=== PATIENT | female | born 1960 | race Two or more races ===

== ENCOUNTER → 2021-04-12 | Emergency (ER) | payer OTHER | END | disposition left against medical advice (07) | LOC: ER 09:23 | DX: R10.9 Unspecified abdominal pain (principal); Z53.21 Procedure and treatment not carried out due to patient leaving prior to being seen by health care provider ==

== ENCOUNTER 2021-07-12 10:55 | Emergency (ER) | payer MEDICAID, OTHER ==
[~2021-07-12] VITALS: Ht 162.6 cm; Wt 68.0 kg
[2021-07-12] MEDS ORDERED: HYDROmorphone HCL 2 MG/ML VL/or syr IV ONE ×2 (11:30→15:00)
[2021-07-12] MEDS ORDERED: PANTOPRAZOLE 40 MG/10 ML VIAL INJ IV ONE (11:30)
[2021-07-12] MEDS ORDERED: ONDANSETRON HCL 4 MG/2 ML VIAL IV ONE ×2 (11:30→15:00)
[2021-07-12] MEDS ORDERED: SODIUM CHLORIDE 0.9% 1,000 ML IVB ONE (11:30)
[2021-07-12 12:31] LABS: Basophils # (auto) 0 10 ^3/uL (0-0.2); Basophils % (auto) 0.4 % (0.0-2.0); Eosinophils # (auto) 0 10 ^3/uL (0-0.8); Eosinophils % (auto) 0.7 % (0.0-7.0); Hematocrit 36.6 % (36.0-46.0); Hemoglobin 12.3 g/dL (12.2-16.2); Lymphocytes # (auto) 1.8 10 ^3/uL (0.4-5.4); Lymphocytes % (auto) 38.2 % (10.0-50.0); Mean Corpuscular Hemoglobin 32.6 pg (28.0-32.0); Mean Corpuscular Hgb Conc. 33.6 g/dL (32.0-36.0); Mean Corpuscular Volume 96.9 fL (80.0-100.0); Monocytes # (auto) 0.2 10 ^3/uL (0-1.3); Neutrophils # (auto) 2.6 10 ^3/uL (1.6-8.6); Neutrophils % (auto) 56.7 % (37.0-80.0); Nucleated Red Blood Cells % 0.1 %; Red Blood Cells 3.78 10^6/uL (4.0-5.20); White Blood Cell 4.6 10^3/uL (4.4-10.8)
[2021-07-12 12:42] LABS: Albumin 4.1 g/dL (3.4-5.0); Calcium 9.4 mg/dL (8.5-10.1); Potassium 3.2 mmol/L (3.5-5.1)
[2021-07-12 12:46] LABS: Bilirubin, Total 0.9 mg/dL (0.2-1.0); Total Protein 7.4 g/dL (6.4-8.2)
[2021-07-12 12:49] LABS: INR 0.94 (0.9-1.15); Partial Thromboplastin Time < 20.0 sec (23.6-33.0)
[2021-07-12 13:04] LABS: Amylase 938 U/L (25-115); Lipase 23092 U/L (73-393)
[2021-07-12] MEDS ORDERED: POTASSIUM CHL 20MEQ/100ML 100 ML IV ONE ×2 (13:45→15:15)
[2021-07-12] MEDS ORDERED: SODIUM CHLORIDE 0.9% 1,000 ML IV ONE (15:15)
[2021-07-12] MEDS ORDERED: MORPHINE SULFATE INJECTION 2 MG/ML SYRG IV PRN (15:15)
[2021-07-12] MEDS ORDERED: ONDANSETRON HCL 4 MG/2 ML VIAL IV PRN (15:15)
[2021-07-12 15:55] LABS: Alcohol, Urine < 3.0 mg/dL (0-10); Amphetamine Screen, Urine NEGATIVE (NEGATIVE); Barbiturate Scree,Urine NEGATIVE (NEGATIVE); Benzodiazephine Screen, Urine NEGATIVE (NEGATIVE); Cannabinoid Screen, Urine NEGATIVE (NEGATIVE); Cocaine Screen, Urine NEGATIVE (NEGATIVE); Opiate Scree,Urine POSITIVE (NEGATIVE); Phencyclidine Screen, Urine NEGATIVE (NEGATIVE)
[2021-07-12] MEDS ORDERED: POTASSIUM EFFERVESENT TAB 25 MEQ PO ONE (16:00)
[2021-07-12 16:14] VITALS: BP 160/74
[2021-07-12 17:13] LABS: Urine Blood Negative /uL (Negative)
[2021-07-12 17:15] LABS: Urine Bacteria FEW /hpf (None Seen); Urine WBC 0-1 /hpf (0 - 5)
== END 2021-07-12 15:31 | disposition short-term general hospital (02) ==
LOC: ER 10:55
DX: K85.90 Acute pancreatitis without necrosis or infection, unspecified (principal); E78.5 Hyperlipidemia, unspecified; F17.210 Nicotine dependence, cigarettes, uncomplicated; Z90.49 Acquired absence of other specified parts of digestive tract; Z20.822 Contact with and (suspected) exposure to COVID-19
CPT/HCPCS: 36415; 71260; 74176; 74177; 76705; 80053; 80061; 80307; 80320; 81001; 82150; 83690; 83735; 84484; 85025; 85610; 85730; 87426; 93005; 96361; 96374; 96375; 96376; 99285; C9113; J1170; J2405; J7030; J3480

== ENCOUNTER 2023-08-08 11:52 | Emergency (ER) | payer OTHER, MEDICAID ==
[~2023-08-08] VITALS: Ht 165.1 cm; Wt 72.7 kg
[2023-08-08 13:58] VITALS: BP 131/75; PULSE 60; RESP 18; TEMP 97.8; O2SAT 97
[2023-08-08] MEDS ORDERED: DICL1GEL59 EX (15:03)
[2023-08-08] MEDS ORDERED: LIDO5DIS21 TOP (15:03)
== END 2023-08-08 15:03 | disposition home or self-care (01) ==
LOC: ER 11:52
DX: M79.18 Myalgia, other site (principal); M25.531 Pain in right wrist; M25.552 Pain in left hip; M54.50 Low back pain, unspecified; E78.5 Hyperlipidemia, unspecified; F12.10 Cannabis abuse, uncomplicated; Z90.49 Acquired absence of other specified parts of digestive tract; W18.09XA Striking against other object with subsequent fall, initial encounter; Y93.89 Activity, other specified; Y92.238 Other place in hospital as the place of occurrence of the external cause; Y99.8 Other external cause status
CPT/HCPCS: 72100; 73110; 73502

== ENCOUNTER → 2023-12-12 | Outpatient (CLI) | payer OTHER, MEDICAID ==
[~2023-12-12] MED LIST: DICL1GEL59 EX; LIDO5DIS21 TOP
== END | disposition home or self-care (01) ==
LOC: LAB 06:49
PROVIDERS: ATTEND Registered Nurse
DX: N39.0 Urinary tract infection, site not specified (principal)
CPT/HCPCS: 87086

== ENCOUNTER 2024-04-19 20:17 | Emergency (ER) | payer OTHER, MEDICAID ==
[~2024-04-19] VITALS: Ht 165.1 cm; Wt 72.8 kg
--- NOTE | 2024-04-19 21:27 | DVH ---
EXAM: XY CHEST PORTABLE CLINICAL HISTORY: Chest pain TECHNIQUE: Single AP view of the chest WID: COMPARISON: None FINDINGS: Lines and tubes: None Chest: The heart size and pulmonary vasculature is within normal limits. Calcified plaque projects over the aortic arch. No pleural effusion, pneumothorax, or consolidation. Linear scarring in the right mid lung and left l alec base. The osseous structures are grossly intact. IMPRESSION: No acute cardiopulmonary abnormality.
[2024-04-19] MEDS ORDERED: ALPR0.5T PO (22:04)
--- NOTE | 2024-04-19 22:05 | ED.PDOC ---
History of Present Illness HPI Comments This patient is a pleasant but histrionic 64-year-old F[place]ian-speaking only female who arrives to the ED today with the family due to complaints of chest pain and back pain status post having an argument with her daughter approximately 2 hours prior to arrival. According to family, patient got into an heated argument with her daughter and subsequent to that event, complain of some chest pain and back pain issues. Patient denies any fever nausea or vomiting. Patient does not have any history of cardiac or pulmonary concerns. Vital signs were stable on arrival. Chief Complaint: Back Pain Time Seen by MD: 20:53 Primary Care Provider: unknown Reviewed Notes: Nurses Notes Allergies: Coded Allergies: NO KNOWN ALLERGIES (Unverified , 07/12/21) Home Meds Active Scripts Lidocaine (LIDODERM 5% TOPICAL PATCH) 1 Patch Ph, 1 PATCH TOP DAILY for 30 Days, #30 PATCH 0 Refills Prov:BRANDIN REGALADO NP 08/08/23 Diclofenac Sodium (Topical) (Voltaren Arthritis Pain) 1 % Gel, 2 GRAMS EX QIDP for 10 Days, #60 GRAMS 0 Refills Prov:BRANDIN REGALADO U[employer]ACHINE 08/08/23 Information Source: Patient, Relative Mode of Arrival: Ambulatory Severity: Moderate Timing: Minutes Duration: Since onset Prehospital treatment: None Past Medical History PAST MEDICAL HISTORY: Cancer, High Lipids Surgical History: Cholecystectomy TALENT SOURCER History: Denies all TALENT SOURCER Hx Family History Family History: Reviewed,noncontributory to illness Social History Smoker: Cigarettes Alcohol: Denies ETOH Use Drugs: Denies Drug Use Lives In: Home Constitutional: denies: chills, diaphoresis, fatigue, fever, malaise, sweats, weakness, others EENTM: denies: blurred vision, double vision, ear bleeding, ear discharge, ear drainage, ear pain, ear ringing, eye pain, eye redness, hearing loss, mouth pain, mouth swelling, nasal discharge, nose bleeding, nose congestion, nose pain, photophobia, tearing, throat pain, throat swelling, voice changes, others Respiratory: denies: cough, hemoptysis, orthopnea, SOB at rest, shortness of breath, SOB with excertion, stridor, wheezing, others Cardiovascular: reports: chest pain; denies: dizzy spells, diaphoresis, Dyspnea on exertion, edema, irregular heart beat, left arm pain, lightheadedness, palpitations, PND, syncope, others Gastrointestinal: denies: abdomen distended, abdominal pain, blood streaked bowels, constipated, diarrhea, dysphagia, difficulty swallowing, hematemesis, melena, nausea, poor appetite, poor fluid intake, rectal bleeding, rectal pain, vomiting, others Genitourinary: denies: abnormal vagina bleeding, burning, dyspareunia, dysuria, flank pain, frequency, hematuria, incontinence, pain, , vagina discharge, urgency, others Neurological: denies: dizziness, fainting, headache, left sided numbness, left sided weakness, numbness, paresthesia, pre-existing deficit, right sided numbness, right sided weakness, seizure, speech problems, tingling, tremors, weakness, others Musculoskeletal: reports: back pain; denies: gout, joint pain, joint swelling, muscle pain, muscle stiffness, neck pain, others Integumetry: denies: bruises, change in color, change in hair/nails, dryness, laceration, lesions, lumps, rash, wounds, others Allergic/Immunocompromised: denies: Difficulty Healing, Frequent Infections, Hives, Itching, others Hematologic/Lymphatic: denies: anemia, blood clots, easy bleeding, easy bruising, swollen glands, others Endocrine: denies: excessive hunger, excessive sweating, excessive thirst, excessive urination, flushing, intolerance to cold, intolerance to heat, unexplained weight gain, unexplained weight loss, others Psychiatric: denies: anxiety, bipolar disorder, depression, hopeless, panic disorder, schizophrenia, sleepless, suicidal, others Physical Exam General Appearance: Moderate Distress (Patient was very histrionic and tearful at time of evaluation.), Normal HEENT: Normal ENT Inspection, Pharynx Normal, TMs Normal Neck: Full Range of Motion, Non-Tender, Normal, Normal Inspection Respiratory: Chest Non-Tender, Lungs Clear, No Accessory Muscle Use, No Respiratory Distress, Normal Breath Sounds, Other (Unremarkable chest evaluation. Unable to elicit any additional pain on palpation. No signs of trauma.) Cardiovascular: No Edema, No JVD, No Murmur, No Gallop, Normal Peripheral Pulses, Regular Rate/Rhythm Breast Exam: Deferred Gastrointestinal: No Organomegaly, Non Tender, No Pulsatile Mass, Normal Bowel Sounds, Soft Genitalia: Deferred Pelvic: Deferred Rectal: Deferred Extremities: No calf tenderness, Normal capillary refill, Normal inspection, Normal range of motion, Non-tender, No pedal edema Neurologic: Alert, No Motor Deficits, Normal Affect, Normal Mood, No Sensory Deficits Cerebellar Function: Normal Reflexes: Normal Skin: Dry, Normal Color, Warm Lymphatic: No Adenopathy Was a procedure done? Was a procedure done?: No Differential Dx Considerations may include: Chest pain, anxiety, pneumonia X-Ray, Labs, Meds, VS Vital Signs Date Time Temp Pulse Resp B/P (MAP) Pulse Ox O2 Delivery O2 Flow Rate FiO2 04/19/24 20:52 18 Room Air 0 04/19/24 20:52 97.5 63 18 145/76 (99) 98 X-Ray, Labs, Meds, VS Comment All studies performed the ED were evaluated by me personally. Imaging studies were unremarkable for any acute intrapulmonary process. No consolidation noted. Patient responded well to medication dispensed. Advised patient contact her primary care provider for discussions related to today's visit and possible medication assistance with possible anxiety related issues. Time of 1ST Reevaluation: 22:02 Reevaluation 1ST: Improved Consultation: PCP, Psychiatry Patient Education/Counseling: Diagnosis, Treatment Family Education/Counseling: Diagnosis, Treatment Departure 1 Departure Time of Disposition: 22:03 Impression: Primary Impression: Anxiety Disposition: 01 HOME / SELF CARE / HOMELESS Condition: Stable Additional Instructions: Advised patient utilize medication as needed for symptomatic relief in additionally, follow up with primary care provider for discussions related to today's visit as well as possible anxiety related concerns. e-Prescriptions Alprazolam (Xanax) 0.5 Mg Tb 1 TAB PO Q8HP PRN, #10 TAB Prov: CHERYL AVILA PAC 04/19/24 Discharged With: Self, Relative Critical Care Note Critical Care Time?: No Stability Stability form required: No Heart Score Heart Score: Heart Score Response (Comments) Value History Slightly Suspicious 0 EKG Normal 0 Age >65 2 Risk Factors No known risk factors 0 Troponin N/A 0 Total 2 CHERYL AVILA PAC Apr 19, 2024 22:05
[2024-04-19] MEDS: ALPRAZolam 0.5 MG TAB PO ONE (22:09)
[2024-04-19 22:13] VITALS: BP 138/73; PULSE 58; RESP 17; TEMP 97.9; O2SAT 97
== END 2024-04-19 22:29 | disposition home or self-care (01) ==
LOC: ER 20:17
DX: F41.9 Anxiety disorder, unspecified (principal); F17.210 Nicotine dependence, cigarettes, uncomplicated; E78.5 Hyperlipidemia, unspecified; R07.9 Chest pain, unspecified; M54.9 Dorsalgia, unspecified; Z90.49 Acquired absence of other specified parts of digestive tract; Z85.9 Personal history of malignant neoplasm, unspecified
CPT/HCPCS: 71045